=== PATIENT | male | born 1970 | race Caucasian/White ===

== ENCOUNTER 2020-07-22 19:13 | Emergency (ER) | payer OTHER, SELFPAY ==
--- NOTE | ~2020-07-22 | XR_ITS ---
EXAMINATION: XR esophogram water soluble DATE: 07/22/2020 20:13 INDICATION: Dysphagia TECHNIQUE: The patient drank water-soluble contrast. Fluoroscopy of the hypopharynx and esophagus was performed. Fluoroscopy exposure time was one minute minutes. The DAP for this procedure was 3.306 Gy cm2. COMPARISON: None. FINDINGS: There is no mass or stricture of the esophagus. Esophageal motility is normal. There is no hiatal hernia. There was no gastroesophageal reflux with provocative maneuvers. IMPRESSION: 1. Unremarkable water-soluble esophagram. Reviewed, dictated and finalized at location A. [facility]
[2020-07-22 19:18] VITALS: BP 149/94; PULSE 68; RESP 20; TEMP 36.7; O2SAT 100
--- NOTE | 2020-07-22 19:28 | ECG_ITS ---
Measurements Intervals [place] Rate: 74 P: 55 ND: 139 QRS: 75 QRSD: 101 T: 50 QT: 355 QTc: 395 Interpretive Statements SINUS RHYTHM NORMAL ECG Electronically Signed On 07-23-2020 16:31:41 PRESS SETTER by Dante Baptiste D.O.
--- NOTE | 2020-07-22 22:00 | ED.GENADULT ---
HPI - General Adult General Chief complaint: Asthma Stated complaint: Shortness of breath-Asthma Time Seen by Provider: 07/22/20 19:18 History of Present Illness HPI narrative: Patient is a 49-year-old male who presents ER with throat pain and difficulty swallowing. Patient reports earlier today he is trying to clear his lungs due to asthma and he was eating some strudel and thinks it irritated his throat. He ended up seeking care at an emergency room in [place] where they evaluated him. He had an x-ray of his chest and neck that were unremarkable. They treated him for asthma as well. Reports he has been able to tolerate oral fluids but when he tried to eat some soup tonight he had difficulty swallowing and opted to come in. No fevers or chills or sweats. No difficulty breathing at this time. Related Data Allergies Allergy/AdvReac Type Severity Reaction Status Date / Time No Known Allergies Allergy Unverified 10/07/18 16:55 Review of Systems Review of Systems: All systems reviewed & are unremarkable except as noted in HPI and below Constitutional: Constitutional: Denies chills, Denies fever(s) and Denies weakness ENT: Denies nasal congestion and Reports sore throat Cardiovascular: Cardiovascular: Denies chest pain, Denies rapid heart rate and Denies radiating jaw, neck or arm pain Respiratory: Respiratory: Denies cough, Denies dyspnea and Denies wheezing Gastrointestinal: Gastrointestinal: Denies abdominal pain, Denies nausea and Denies vomiting PMFSH Past Medical History Medical History (Updated 07/22/20 @ 22:26 by Tavo Dunlap MD) Healthy adult male Surgical History Surgical History (Updated 07/22/20 @ 22:17 by Tavo Dunlap MD) No history of previous surgery Social History Social History (Updated 07/22/20 @ 22:17 by Tavo Dunlap MD) Smoking status: Never smoker Exam Narrative: Exam Narrative: GENERAL: Well-appearing, well-nourished, and in no acute distress. HEAD: Normocephalic, atraumatic. ENT: Mucous membranes moist. Normal-appearing posterior oropharynx. Tolerating oral secretions without difficulty. NECK: Supple. CHEST: Clear to auscultation. No respiratory distress. HEART: Regular rate and rhythm. Normal peripheral pulses. ABDOMEN: Soft, nontender, nondistended. EXTREMITIES: Normal range of motion. No edema. NEURO: Alert and oriented x3. Course Course Emergency Course: Unremarkable exam. Discharge home. Likely has a superficial abrasion esophagus is causing irritation. Vital Signs Vital signs: Vital Signs Temperature 98.1 F 07/22/20 19:18 Pulse Rate 68 07/22/20 19:18 Respiratory Rate 20 07/22/20 19:18 Blood Pressure 149/94 H 07/22/20 19:18 Pulse Oximetry 100 07/22/20 19:18 Temperature 98.1 F 07/22/20 19:18 Pulse Rate 68 07/22/20 19:18 Respiratory Rate 20 07/22/20 19:18 Blood Pressure 149/94 H 07/22/20 19:18 Pulse Oximetry 100 07/22/20 19:18 Medical Decision Making Vital Signs Vital Signs: Vital Signs Temperature 98.1 F 07/22/20 19:18 Pulse Rate 68 07/22/20 19:18 Respiratory Rate 20 07/22/20 19:18 Blood Pressure 149/94 H 07/22/20 19:18 Pulse Oximetry 100 07/22/20 19:18 Temperature 98.1 F 07/22/20 19:18 Pulse Rate 68 07/22/20 19:18 Respiratory Rate 20 07/22/20 19:18 Blood Pressure 149/94 H 07/22/20 19:18 Pulse Oximetry 100 07/22/20 19:18 Imaging Data Radiologist's impression: ITS Impressions Esophagus X-Ray 07/22/20 20:24 IMPRESSION: 1. Unremarkable water-soluble esophagram. Discharge Plan Discharge Clinical Impression: Sore throat Patient Disposition: Home, Self-Care Condition: Stable Instructions: Strep Throat (ED) Additional Instructions: Return to the ER if you cannot breathe, you cannot swallow, or you have additional concerns. Follow-up/Referrals: Perry Manjarrez MD [Primary Care Provider] - 1 Week
[2020-07-22] MEDS: LIDOCAINE HCL 2% VISC SOLN 15 ML UDC PO (22:05)
[2020-07-22 22:54] VITALS: BP 141/95; PULSE 85; RESP 16; TEMP 36.7; O2SAT 100
== END 2020-07-22 22:55 | disposition home or self-care (01) ==
PROVIDERS: Emergency Provider Emergency Medicine; PCP Family Medicine
DX: J02.9 Acute pharyngitis, unspecified (principal)
CPT/HCPCS: 74220; 93005; 99283

== ENCOUNTER 2020-08-14 00:10 | Outpatient (CLI) | payer OTHER, SELFPAY ==
[2020-08-14 17:38] LABS: SARS-CoV-2 RNA PCR Negative
== END 2020-08-14 00:11 | disposition home or self-care (01) ==
PROVIDERS: Family Provider Family Medicine; PCP Family Medicine; Visit Provider Internal Medicine Gastroenterology
DX: Z01.812 Encounter for preprocedural laboratory examination (principal); Z20.822 Contact with and (suspected) exposure to COVID-19
CPT/HCPCS: C9803; U0003; U0005

== ENCOUNTER 2020-08-17 01:34 | Day surgery (SDC) | payer OTHER, SELFPAY ==
[2020-08-12 12:11] VITALS: BMI 21.5
[2020-08-17 07:00] VITALS: BP 109/79; TEMP 36.6; O2SAT 98; BMI 19.3
--- NOTE | 2020-08-17 07:00 | P.PNAN_ITS ---
Anes - Initial Pre Proc Eval Procedure: Operation Date: 08/17/20 08:00 Proposed Procedures p Esophagogastroduodenoscopy & Screening Colonoscopy - Sander Vogel MD Date/Time: 08/17/20 07:00 Surgeon: Sander Vogel MD Pre Op Diagnosis: Neoplasm Screening, Dysphagia Patient Data Age: 49 Gender: M Height: 1.85 m Weight: 74 kg Allergies Allergy/AdvReac Type Severity Reaction Status Date / Time No Known Allergies Allergy Verified 08/17/20 06:58 Home Medications Medication Instructions Recorded Confirmed Type sodium,potassium,mag sulfates 17.5 See Rx Instructions PO .COMPLEX 08/11/20 Rx gram-3.13 gram-1.6 gram oral soln #354 ml duloxetine [Cymbalta] 30 mg PO DAILY 08/12/20 08/12/20 History omeprazole 20 mg PO DAILY 08/12/20 08/12/20 History Patient hx anesthesia problems: none Family hx anesthesia problems: none COUNT INCLUDES THE [facility] Past Medical History Medical History (Updated 08/17/20 @ 07:01 by Graham Blankenship DO) Asthma Depression GERD (gastroesophageal reflux disease) Surgical History Surgical History (Updated 07/22/20 @ 22:17 by Tavo Dunlap MD) No history of previous surgery Social History Social History Smoking status: Never smoker Substance use: never Substance use type: does not use Living arrangements: with family Gender identity (if verbalized by the patient): Male Sexual Orientation (if Verbalized by the Patient): Straight or Heterosexual Spiritual care concerns: No Anes - Eval Final PreProcedure Day of Procedure 08/17/20 07:00 Patient weight: thin Heart: regular rate and rhythm Lungs: clear to auscultation and normal air movement Airway: Mallampati scale class III Neurological: alert and oriented Last oral intake: >/= 8 hours ASA classification: III Emergent: no Anesthetic plan: proceed Anesthesia type and monitoring: general GIVS and standard monitoring Informed Consent: The patient's anesthetic plan and its attendant risks and benefits were discussed with the patient/family/POA. Questions were solicited and answers provided to the satisfaction of the patient/family/POA.
[2020-08-17] MEDS: LACTATED RINGERS 1,000 ML 150 ML IV CONT (07:13)
--- NOTE | 2020-08-17 07:49 | WPDGICN ---
Assessment and Plan Assessment and plan (1) Dysphagia: Code(s): R13.10 - Dysphagia, unspecified Status: Acute Assessment and Plan: Patient has 1 month history of difficulty swallowing anything more than liquid diet. Plan is for EGD to assess more thoroughly. Plan is to exclude narrowing of the esophagus he may require dilatation. Long-term therapy will be determined after this procedure. (2) Encounter for screening colonoscopy: Code(s): Z12.11 - Encounter for screening for malignant neoplasm of colon Status: Acute Assessment and Plan: Patient presents today for screening colonoscopy because of his age. He has no family history of prior history the puts him at higher risk. Suspect he is at average risk for colon polyps. Further recommendations will be given after endoscopy. GI Consult Note Consult date/time: 08/17/20 07:49 HPI: Benny Camara is a 49 year old male Seen in follow-up at the request of Dr. Perry Manjarrez. Patient reports a 1 month history of difficulty swallowing. He denies any prior heartburn or difficulties. One month ago began to have difficulty with food hanging up in the chest. He states that liquids will pass easily. Anything more solid than this will cause discomfort in the throat and passed very slowly. He has had no relief with Tums or antacids. Over the last 1 week has begun to take a proton pump inhibitor empirically. Patient reports a 7 lb weight loss over the last 1 month. He denies any bleeding. He has no prior history of heartburn or indigestion that he is aware of. His last screening colonoscopy was many years ago. B because is been more than 10 years patient presents today for screening colonoscopy. Review of Systems Review of Systems: All systems reviewed & are unremarkable except as noted in HPI and below PMFSH Past Medical History Medical History (Updated 08/17/20 @ 07:51 by Sander Vogel MD) Asthma Depression GERD (gastroesophageal reflux disease) Surgical History Surgical History (Updated 07/22/20 @ 22:17 by Tavo Dunlap MD) No history of previous surgery Social History Social History Smoking status: Never smoker Substance use: never Substance use type: does not use Living arrangements: with family Gender identity (if verbalized by the patient): Male Sexual Orientation (if Verbalized by the Patient): Straight or Heterosexual Spiritual care concerns: No Meds Home Medications and Allergies Home Medications Medication Instructions Recorded Confirmed Type sodium,potassium,mag sulfates 17.5 See Rx Instructions PO .COMPLEX 08/11/20 Rx gram-3.13 gram-1.6 gram oral soln #354 ml duloxetine [Cymbalta] 30 mg PO DAILY 08/12/20 08/12/20 History omeprazole 20 mg PO DAILY 08/12/20 08/12/20 History Allergies Allergy/AdvReac Type Severity Reaction Status Date / Time No Known Allergies Allergy Verified 08/17/20 06:58 Vital Signs Vital Signs - 24 hr 08/17/20 07:00 Temperature 97.8 F Blood Pressure 109/79 Pulse Oximetry 98 Exam Narrative: Exam Narrative: Physical exam reveals patient to be alert. Vital signs stable. HEENT exam is unremarkable. Lungs are clear to auscultation and percussion. Heart is without murmur or extra sounds. Abdominal exam bowel sounds are present soft nontender with no organomegaly. Digital external rectal exam is normal.
[2020-08-17 08:17] VITALS: BP 96/59; PULSE 69; RESP 17; O2SAT 100
[2020-08-17 08:27] VITALS: BP 105/63; PULSE 68; RESP 17; O2SAT 100
[2020-08-17 08:37] VITALS: BP 93/73; PULSE 64; RESP 20; O2SAT 100
== END 2020-08-17 08:53 | disposition home or self-care (01) ==
PROVIDERS: Family Provider Family Medicine; PCP Family Medicine; Visit Provider Internal Medicine Gastroenterology
PROC: 0DJ08ZZ Inspection of Upper Intestinal Tract, Via Natural or Artificial Opening Endoscopic (ICD-10-PCS; CPT 43235; principal; 2020-08-17 08:00)
DX: R13.10 Dysphagia, unspecified (principal); Z12.11 Encounter for screening for malignant neoplasm of colon; K21.9 Gastro-esophageal reflux disease without esophagitis; J45.909 Unspecified asthma, uncomplicated; F32.9 Major depressive disorder, single episode, unspecified; K64.8 Other hemorrhoids
CPT/HCPCS: 45378; 43450; 43235; J2704; J7120

== ENCOUNTER 2023-08-02 18:48 | Emergency (ER) | payer OTHER, SELFPAY ==
[2023-08-02 19:02] VITALS: BP 149/80; PULSE 77; RESP 16; TEMP 37.2; O2SAT 98
--- NOTE | 2023-08-02 19:20 | ED.URI ---
HPI - URI/Sore Throat General Chief Complaint: Upper Respiratory Infection Stated Complaint: cold symptoms/poss covid exposure Time Seen by Provider: 08/02/23 19:03 Source: patient and RN notes reviewed Mode of arrival: ambulatory Limitations: no limitations History of Present Illness HPI Narrative: Patient presents today with a 2 day history of nasal congestion, rhinorrhea, cough. Denies fever, shortness of breath, sore throat. He took 1 dose of a decongestant medication today at home with some mild relief. Reports COVID exposure by child at home. Reports history of seasonal asthma Related Data Home Medications Medication Instructions Recorded Confirmed No Home Medications 08/02/23 08/02/23 Allergies Allergy/AdvReac Type Severity Reaction Status Date / Time No Known Allergies Allergy Verified 08/02/23 19:01 Review of Systems Review of Systems: CONSTITUTIONAL: Denies body aches, fever, chills, or sweats. EYES: Denies visual changes, redness, or discharge. ENT: Denies sore throat, or otalgia.+ congestion, rhinorrhea CARDIOVASCULAR: Denies chest pain, palpitations, or edema. RESPIRATORY: Denies dyspnea.+ cough GASTROINTESTINAL: Denies abdominal pain, nausea, vomiting, or diarrhea. GENITOURINARY: Denies dysuria or hematuria. SKIN: Denies rash, itching, or wounds. MUSCULOSKELETAL: Denies back pain, joint pain, or myalgia. NEUROLOGIC: Denies headache, numbness, tingling, or weakness. PSYCH: Denies depression or anxiety. [facility] Past Medical History Medical History Asthma Depression GERD (gastroesophageal reflux disease) Surgical History Surgical History No history of previous surgery Social History Social History Smoking status: Never smoker Substance use: never Substance use type: does not use Living arrangements: with family Gender identity (if verbalized by the patient): Male Sexual Orientation (if Verbalized by the Patient): Straight or Heterosexual Spiritual care concerns: No Comments At time of signature, I have reviewed and agree with nursing past medical, surgical, social and family history unless otherwise noted. Please see nursing chart for further information. There is no relevant family history pertinent to the presenting complaint Exam Narrative: GENERAL: Well-appearing, well-nourished, and in no acute distress. HEAD: Normocephalic, atraumatic. EYES: EOMI. No redness or drainage. Conjunctivae normal. ENT: Mucous membranes pink and moist. Nares mildly congested. No rhinorrhea. TMs normal bilaterally. Throat normal. Uvula midline. NECK: Normal AROM. Supple. No lymphadenopathy. CHEST: No respiratory distress. Clear to auscultation. HEART: Regular rate and rhythm. No murmur appreciated. EXTREMITIES: Normal range of motion. No edema. SKIN: Warm, dry, no rash. Capillary refill normal. Normal skin turgor. NEURO: No focal deficits. Alert and oriented x3. Gait steady. PSYCH: Normal affect. No signs of depression or anxiety. Course Course Level of Care: Express Care Visit Vital Signs Vital signs: Vital Signs Temperature 98.9 F 08/02/23 19:02 Pulse Rate 77 08/02/23 19:02 Respiratory Rate 16 08/02/23 19:02 Blood Pressure 149/80 H 08/02/23 19:02 Pulse Oximetry 98 08/02/23 19:02 Oxygen Delivery Room Air 08/02/23 19:02 Temperature 98.9 F 08/02/23 19:02 Pulse Rate 77 08/02/23 19:02 Respiratory Rate 16 08/02/23 19:02 Blood Pressure 149/80 H 08/02/23 19:02 Pulse Oximetry 98 08/02/23 19:02 Oxygen Delivery Room Air 08/02/23 19:02 Reviewed MDM - URI/Sore Throat MDM Narrative Medical decision making narrative: COVID positive. Discussed duration of illness, quarantine status, and [id number] medications as well as when to go to th
== END 2023-08-02 19:33 | disposition home or self-care (01) ==
PROVIDERS: Emergency Provider Nurse Practitioner; PCP Family Medicine
DX: U07.1 COVID-19 (principal)
CPT/HCPCS: 87426; 99213; G0463

== ENCOUNTER 2024-01-17 00:33 | Day surgery (SDC) | payer OTHER, SELFPAY ==
[2024-01-15 09:24] VITALS: BMI 23.1
--- NOTE | 2024-01-15 09:30 | PC.NURSE ---
Report to the Outpatient Waiting Room, entrance under the green pavilion located off [facility], at time _0600_ on date _[id number]_. Planned Procedure Time: _0730_. Time changes happen often and if your time is changed the preop area will call you the afternoon before. - You and your visitor will be asked to self-screen and do not enter if you have any COVID symptoms. - A mask is optional within the hospital at this time. Patients may have clear liquids (water, carbonated beverages, clear teas, apple juice) until 3 hours prior to surgery with a maximum of 20 ounces. - No food from midnight until time of surgery Take the following medications with a SIP of water the morning of surgery: __None DO NOT STOP ANY OF YOUR OTHER PRESCRIPTION MEDICATIONS PRIOR TO SURGERY ?EXCEPT THE FOLLOWING Medications to discontinue per physician Multivitamin Date to take last dose___Stop now. Please no make-up, nail beninese, hairspray, perfume, deodorant, or body powder the day of surgery. No jewelry (including any body piercings) or valuables the day of surgery, leave them at home. Please take a shower or bath the night before, or the morning of, surgery with an antibacterial soap. Wear comfortable, loose fitting clothing. - Jewelry must be removed prior to entering the operating room. Rings and piercings that are not removed may be cut off. - The hospital will not accept responsibility for valuables. - Please leave all valuables, including medications, at home the day of surgery. If you are going home after surgery, a licensed truck driver supervisor must drive you home. - NO public transportation without another adult if you receive anesthesia. - We recommend that an adult stay with you for 24 hours following discharge. - We also recommend that you do not drive, make important decision, drink alcoholic beverages, or take any drugs that were not prescribed by your health care provider for at least 24 hours after your discharge time. Follow any additional instructions given to you from your surgeon. If you or anyone in your household have experienced Covid symptoms in the past week, please notify your surgeon or the nurse liaison at the phone number below for possible testing. Telephone instructions given to __James__and asked if any additional questions and then verbalized understanding. Patient advised to call surgeon office or pre surgery nurse liaison [phone] if any additional questions.
[2024-01-17] VITALS (9 sets, daily range): BP systolic 112–129; BP diastolic 58–107; PULSE 63–77; RESP 12–16; TEMP 36.1–36.4; O2SAT 98–100
[2024-01-17] MEDS: LACTATED RINGERS 1,000 ML 30 ML IV CONT ×2 (09:15→13:10)
[2024-01-17] MEDS: ACETAMINOPHEN 500 MG TABLET 1000 MG PO (10:14)
[2024-01-17] MEDS: KETOROLAC 15 MG/ML VIAL (*BKC) IV PUSH (10:14)
--- NOTE | 2024-01-17 10:41 | WPDHPUPDATE1 ---
History and Physical Update Update Date/Time: 01/17/24 10:41 History and Physical has been reviewed, including an updated exam of the patient. There are NO changes in the patient's condition. Risks, benefits, and alternatives have been discussed and questions answered. Patient agrees to proceed with procedure.
--- NOTE | 2024-01-17 10:41 | PM.IMHP ---
H&P: HPI History of Present Illness Date/Time: 01/17/24 10:41 Chief Complaint: Right inguinal hernia Narrative: This is a 53-year-old man who presents for a right inguinal hernia repair. He reports no changes since last seen in the office Review of Systems Review of Systems: All systems reviewed & are unremarkable except as noted in HPI and below Constitutional: Constitutional: Denies chills, Denies fever(s), Denies headache(s) and Denies weight loss Eyes: Eyes: Denies change in vision ENT: Denies dizziness, Denies headache(s), Denies neck mass and Denies throat swelling Cardiovascular: Cardiovascular: Denies chest pain, Denies lightheadedness and Denies dyspnea Respiratory: Respiratory: Denies cough, Denies dyspnea and Denies wheezing Gastrointestinal: Gastrointestinal: Denies abdominal pain, Denies change in bowel habits, Denies nausea and Denies vomiting Genitourinary: Genitourinary: Denies hematuria and Denies dysuria Musculoskeletal: Musculoskeletal: Reports as per HPI Integumentary/Breasts: Skin/Breast: Reports as per HPI Neurologic: Denies dizziness and Denies headache(s) Allergic/Immunologic: Allergic/Immunologic: Denies throat swelling and Denies wheezing PMFSH Past Medical History Medical History Asthma COVID-19 Depression Dysphagia Encounter for screening colonoscopy GERD (gastroesophageal reflux disease) Surgical History Surgical History No history of previous surgery Family History Family History Father Cancer Mother No problems noted. Sibling Diabetes mellitus Social History Social History (Updated 12/08/23 @ 10:52 by Juli Small MA) Smoking status: Never smoker Alcohol intake: current Drinks per week: 3 Substance use: never Substance use type: does not use Do You Feel Safe in your Home?: Yes Lack of Transportation: No Lack of Food: Never True Current Housing: I Have Housing Concerned About Future Housing: No Difficulty Paying Gas/Electric Bills: No Difficulty Paying for Meds: No Currently Unemployed: No Education: Associate Degree Difficulty w/ Childcare or Family Care: No Living arrangements: with family Occupation/Education: occupation Additional occupation/education comments: [employer] Gender identity (if verbalized by the patient): Male Sexual Orientation (if Verbalized by the Patient): Straight or Heterosexual Spiritual care concerns: No Meds Home Medications and Allergies Home Medications Medication Instructions Recorded Confirmed Type cbteaubjpytk-ipm-uoixs acid-vit 1 tablet PO DAILY 11/27/23 01/17/24 History K-lycop 400 mcg-20 mcg-370 mcg tablet (Men's 50 Plus Multivitamin) Allergies Allergy/AdvReac Type Severity Reaction Status Date / Time No Known Allergies Allergy Verified 01/17/24 09:22 Vital Signs Vital Signs - 24 hr 01/17/24 09:15 Temperature 36.4 C Pulse Rate 76 Respiratory Rate 16 Blood Pressure 122/107 H Pulse Oximetry 100 Oxygen Delivery Room Air Exam Const: General: no acute distress and alert Orientation/consciousness: patient oriented x3 HENMT: Head: normocephalic and atraumatic Ears: hearing grossly normal bilaterally Face/Nose/Sinus: Normal nares present Mouth: Yes Normal oral and palatal mucosa present Eyes: Periorbital: periorbital findings normal Sclera: sclerae normal EOM: EOMs intact bilaterally Neck: Neck: normal visual inspection, no lymphadenopathy and trachea midline Chest: Chest palpation & inspection: normal inspection of the chest Resp: Effort & Inspection: normal respiratory effort Auscultation: clear to auscultation bilaterally Cardio: Jugular venous distension: no JVD Rate: regular rate Rhythm: regular rhythm Heart sounds: S1 normal heart sound present
--- NOTE | 2024-01-17 10:49 | WPDANESEPPF ---
Anes - Initial Pre Proc Eval Procedure: Operation Date: 01/17/24 11:00 Proposed Procedures p Laparoscopic Right Inguinal Hernia Repair with Mesh, Davinci Assisted - Andrew Cervantes DO Date/Time: 01/17/24 10:49 Surgeon: Andrew Cervantes DO Pre Op Diagnosis: Right Ing Hernia Patient Data Age: 53 Gender: M Height: 1.83 m Weight: 72.6 kg Last Vital Signs Temp 36.4 C 01/17/24 09:15 Pulse 76 01/17/24 09:15 Resp 16 01/17/24 09:15 BP 122/107 H 01/17/24 09:15 Pulse Ox 100 01/17/24 09:15 O2 Del Method Room Air 01/17/24 09:15 Allergies Allergy/AdvReac Type Severity Reaction Status Date / Time No Known Allergies Allergy Verified 01/17/24 09:22 Home Medications Medication Instructions Recorded Confirmed Type mjxhkagpfqzj-uqj-ipkxi acid-vit 1 tablet PO DAILY 11/27/23 01/17/24 History K-lycop 400 mcg-20 mcg-370 mcg tablet (Men's 50 Plus Multivitamin) Laboratory Tests 01/17/24 10:05 Blood Type Pending Antibody Screen Pending Patient hx anesthesia problems: none Family hx anesthesia problems: none Results Review: All pre-operative results and documents have been reviewed as part of the pre-operative evaluation. [facility] Past Medical History Medical History Asthma COVID-19 Depression Dysphagia Encounter for screening colonoscopy GERD (gastroesophageal reflux disease) Surgical History Surgical History No history of previous surgery Family History Family History Father Cancer Mother No problems noted. Sibling Diabetes mellitus Social History Social History Smoking status: Never smoker Alcohol intake: current Drinks per week: 3 Substance use: never Substance use type: does not use Do You Feel Safe in your Home?: Yes Lack of Transportation: No Lack of Food: Never True Current Housing: I Have Housing Concerned About Future Housing: No Difficulty Paying Gas/Electric Bills: No Difficulty Paying for Meds: No Currently Unemployed: No Education: Associate Degree Difficulty w/ Childcare or Family Care: No Living arrangements: with family Occupation/Education: occupation Additional occupation/education comments: [employer] Gender identity (if verbalized by the patient): Male Sexual Orientation (if Verbalized by the Patient): Straight or Heterosexual Spiritual care concerns: No Anes - Eval Final PreProcedure Day of Procedure 01/17/24 10:49 Patient weight: normal Heart: regular rate and rhythm Lungs: clear to auscultation Airway: Mallampati scale class II Neurological: alert and oriented Last oral intake: >/= 8 hours ASA classification: II Emergent: no Anesthetic plan: proceed Anesthesia type and monitoring: general ETT and standard monitoring Results Review: All pre-operative results and documents have been reviewed as part of the pre-operative evaluation. Informed Consent: The patient's anesthetic plan and its attendant risks and benefits were discussed with the patient/family/POA. Questions were solicited and answers provided to the satisfaction of the patient/family/POA.
[2024-01-17] MEDS: ceFAZolin 2 GM/D5W 50 ML 2 GM/50 ML BAG IVPB (11:02)
[2024-01-17] MEDS: BUPIVACAINE/EPINEPHRINE 0.5% 10 ML VIAL 30 ML INFILTRATE (11:37)
--- NOTE | 2024-01-17 12:12 | W.PM.PROC2 ---
Procedure Note - Detailed Date of Procedure 01/17/24 Pre-op Diagnosis Right Ing Hernia Post-op Diagnosis Same (Direct right inguinal hernia) Procedure Performed Laparoscopic right inguinal hernia repair with mesh, da Juan Carlos assisted Surgeon Andrew Cervantes, Anesthesia General and Local (0.5% bupivacaine with epinephrine) Indications This is a 53-year-old man who presented with right groin pain that started about 2 months ago and he has a noticeable bulge along with it. He denied any pain on the left side. He was found to have a reducible right inguinal hernia physical exam. Discussions were made with the patient about treatment options and decision was made to proceed with robotic assisted laparoscopic right inguinal hernia repair with mesh. Findings Laparoscopic right inguinal hernia repair was performed. Patient was found to have a direct right inguinal hernia. There was no evidence of left inguinal hernia on inspection. A robotic transabdominal preperitoneal approach was utilized for repair. Once a wide enough preperitoneal pocket was created in the hernia sac was reduced, I then placed a large right 3DMax mid mesh overlying the entire right myopectineal orifice. No specimens were obtained for pathology. Description of Procedure Procedure as well as risks, benefits, and alternatives were discussed with the patient. Written consent was obtained and placed in chart prior to procedure. Patient was brought back to surgical suite. He was placed supine on operating table. Time-out was done to confirm patient and procedure. He was then intubated by Anesthesia Department. His abdomen was prepped and draped in sterile fashion using chlorhexidine prep. 0.5% bupivacaine with epinephrine was infiltrated at each location for incision. A 12 millimeter transverse incision was made just superior to the umbilicus using a 15 blade scalpel. Blunt dissection was carried out down to the linea alba. A vertical incision was made at the linea alba using a 15 blade scalpel. The peritoneum was then bluntly entered. A 12 millimeter trocar was inserted and carbon dioxide insufflation was used to create a pneumoperitoneum. A camera was inserted and the abdominal cavity was inspected. The patient was placed in slight Trendelenburg position. An 8 millimeter incision was made on the right lateral abdomen and an 8 millimeter trocar was inserted under direct visualization. Another 8 millimeter incision was made in the left lateral abdomen and an 8 millimeter trocar was inserted under direct visualization. The robotic arms were brought up to the patient's bedside and secured to the ports. The camera and instruments were inserted. I then moved over to the robotic console and took control of the camera and instruments. After careful inspection of the abdominal cavity, I began scoring the peritoneum along the right lower quadrant using scissors with electrocautery. The preperitoneal plane was entered and this was carefully dissected caudally along the inferior epigastric vessels. Careful dissection with scissors with electrocautery and blunt dissection was used to continue this dissection. I dissected far enough laterally to allow for mesh placement, and also dissected medially to identify the pubic arch and Mike's ligament. The hernia sac was identified and carefully dissected posteriorly. The cord contents were also identified and the peritoneum was carefully dissected far enough posteriorly to allow for mesh placement. Once an adequate pocket was created, I then placed the mesh within the preperitoneal pocket and carefully unfolded it. The mesh was centered on the hernia defect with adequate overlap circumferentially. The inferior edge of the mesh was inspected to ensure that it was far enough away from the peritoneal edge. The mesh appeared in proper position overlying the entire myopectineal orifice. The mesh was secured using 3-0 Vicryl simple interrupted sutures i
[2024-01-17] MEDS: oxyCODONE HCL (*CRX) 5 MG TAB IR PO (13:45)
== END 2024-01-17 14:45 | disposition home or self-care (01) ==
PROVIDERS: PCP Family Medicine; Visit Provider Surgery
PROC: 8E0Y4CZ Robotic Assisted Procedure of Lower Extremity, Percutaneous Endoscopic Approach (ICD-10-PCS; CPT 49650; principal; 2024-01-17 11:00)
DX: K40.90 Unilateral inguinal hernia, without obstruction or gangrene, not specified as recurrent (principal); J45.909 Unspecified asthma, uncomplicated; K21.9 Gastro-esophageal reflux disease without esophagitis
CPT/HCPCS: 49650; S2900; 36415; 86850; 86900; 86901; A9270; C1781; J0690; J1100; J1170; J1885; J2250; J2405; J2704; J3010; J7120

== ENCOUNTER 2024-11-01 15:42 | Outpatient (CLI) | payer OTHER, SELFPAY ==
--- NOTE | ~2024-11-01 | XR_ITS ---
Lumbosacral Spine: AP, oblique, and lateral views Clinical History: Pain Findings: The normal lordotic curve is maintained. The vertebral bodies and posterior elements are i ntact. The intervertebral disc spaces are preserved. The sacroiliac joints are normally outlined. Impression: No significant abnormality. Reviewed, dictated and finalized at [facility]. Impression: No significant abnormality.
--- OUTSIDE RECORDS SUMMARY | 2024-11-01 15:46 | XMS_ITS | Clinical Summary ---
Author Organization [facility] Address [address], [address] [address] Phone Care Team Providers Care Waist Pleater Name Role Phone Perry Manjarrez MD Primary Care Provider [phone] Social History Tobacco Use Types Packs/Day Years Used Date Smoking Tobacco: Never Assessed Sex and Gender Information Value Date Recorded Sex Assigned at Not on file Legal Sex Male 12:15 AM CDT Gender Identity Not on file Sexual Orientation Not on file Plan of Treatment Health Maintenance Due Date Last Done Comments Hepatitis C Virus (HCV) Screening 1970 TdaP Immunization 1968 Hepatitis B Immunization (1 of 3 - 19+ 3-dose series) 12/19/1987 Colonoscopy 2013 Colorectal Cancer Screening 2013 Cologuard 2018 Immunochemical Fecal Occult Blood 2018 Pneumococcal Immunization (5 0+ years) (1 of 1 - PCV) 2018 Zoster Immunization (1 of 2) 2018 PSA Discussion 12/19/2023 Influenza Immunization (#1) 2024 SARS-COV-2 Immunization ( season) 2024 Respiratory Syncytial Virus (RSV) Immunization (Adult) (1 - 1-dose 75+ series) 12/19/2043 Meningococcal Immunization (ACWY) Aged Out No longer eligible based on patient's age to complete this topic Pneumococcal Immunization Combined Aged Out No longer eligible based on patient's age to complete this topic Rotavirus Immunization Aged Out No lo nger eligible based on patient's age to complete this topic Care Teams Waist Pleater Relationship Specialty Start Date End Date Perry Manjarrez MD [address] [place], [place] [address] PCP - General Family Medicine 09/02/19
--- OUTSIDE RECORDS SUMMARY | 2024-11-01 15:46 | XMS_ITS | Clinical Summary ---
Author Organization [facility] Address [address] [place] [address] Care Team Providers Care Digital Communications Manager Name Role Phone Perry Manjarrez MD Primary Care Provider [phone] Source Comments [facility],non-owned Affiliates and Associated Physician Practices is amultiple site organization consisting of ambulatory clinics and hospital sitesin [place], [place], [place] and [place]. This disclosure is being madepursuant to the Care Everywhere program and may not contain all information available regarding this patient. Last updated 18.[facility] Allergies No known active allergies Medications * Be aware that medications may not be up to date on this document. Alwaysverify current medications with the patient. Medication Sig Dispensed Refills Start Date End Date Status albuterol HFA (PROVENTIL;VENTOLIN;P ROAIR) 108 (90 Base) MCG/ACT inhaler Inhale 2 puffs by mouth 4 times daily 07/23/2020 Active amitriptyline (ELAVIL) 10 MG tablet Take 1 (one) tablet by mouth every evening 30 tablet 3 08/27/2020 Active Social History Tobacco Use Types Packs/Day Years Used Date Smoking Tobacco: Never Smokeless Tobacco: Never Alcohol Use Standard Drinks/Week Comments Yes 0 (1 standard drink = 0.6 oz pur e alcohol) social Sex and Gender Information Value Date Recorded Sex Assigned at Not on file Gender Identity Not on file Sexual Orientation Not on file Last Filed Vital Signs Vital Sign Reading Time Taken Comments Blood Pressure 107/63 08/27/2020 8:34 AM ORDER DISPATCHER CHIEF Pulse 94 08/27/2020 8:34 AM ORDER DISPATCHER CHIEF Temperature 36.7 C (98 F) 08/27/2020 8:34 AM ORDER DISPATCHER CHIEF Respiratory Rate - - Oxygen Saturation - - Inhaled Oxygen Concentration - - Weight 68.5 kg (151 lb) 08/27/2020 8:34 AM ORDER DISPATCHER CHIEF Height 185.4 cm (6' 1 ) 08/27/2020 8:34 AM ORDER DISPATCHER CHIEF Body Mass Index 19.92 08/27/2020 8:34 AM ORDER DISPATCHER CHIEF Plan of Treatment Health Maintenance Due Date Last Done Comments COLOGUARD (AGES 45-75) - COL ON CA SCREENING 1968 CT COLONOGRAPHY - COLON CA SCREENING 1968 FIT - COLON CA SCREENING 1968 FLEX SIG - COLON CA SCREENING 1968 LIPID TESTING 1968 HIV SCREENING 12/19/1983 HEPATITIS C SCREENING 12/14/1986 DTAP/TDAP/TD VACCINES (1 - Tdap) 12/19/1987 HEPATITIS B VACCINE (1 of 3 - 19+ 3-dose series) 12/19/1987 PNEUMOCOCCAL VACCINE 50+ (1 of 1 - PCV) 2018 ZOSTER VACCINE (1 of 2) 2018 COVID-19 VACCINE ( - 2023-2 5 season) 2024 DEPRESSION SCREENING 07/24/2024 INFLUENZA VACCINE (Season Ended) 2025 COLON MONITORING 08/17/2030 08/17/2020 COLONOSCOPY - COLON CA SCREENING 08/17/2030 08/17/19 21 Colorectal Cancer Screening 08/17/2030 HIB VACCINE Aged Out No longer eligi ble based on patient's age to complete this topic HPV VACCINE Aged Out No longer eligi ble based on patient's age to complete this topic MENINGOCOCCAL (Group B) VACC INE SHARED DECISION-MAKING Aged Out No longer eligibl e based on patient's age to complete this topic MENINGOCOCCAL GROUPS A/C/Y/W VACCINE Aged Out No longer eligible b ased on patient's age to complete this topic PNEUMOCOCCAL VACCINE Aged Out No long er eligible based on patient's age to complete this topic Procedures Procedure Name Priority Date/Time Associated Diagnosis Comments COLONOSCOPY Routine 08/17/2020 8:49 AM ORDER DISPATCHER CHIEF from Last 3 Months or Most Recently Relevant to Health Maintenance Insurance Payer Benefit Plan / Group Subscriber ID Effective Dates Phone Address Type [facility] 01/22/2020-Present [address] [place] [address] HMO [employer] [facility] 01/22/2020-Present [address] [place] [address] HMO [employer] [facility] 01/22/2020-Present [address] [place] [address] HMO [employer] [facility] Effective for all dates [address] [place] [address] O [employer] [facility] Effective for all dates [address] [place] [address] HMO HE[employer]LINK HEALTHLINK OPEN ACCESS HMO Effective for all dates [address] [place] [address] HMO [employer] OPEN ACCESS HMO Effective for all dates [address] [place] [address] HMO [employer] OPEN ACCESS HMO Effective for all dates [address] [place] [address] HMO [employer] OPEN ACCESS HMO Effective for all dates [address] [place] [address] HMO [employer] OPEN ACCESS HMO Effective for all dates [address] [place] [address] HMO [employer] OPEN ACCESS HMO Effective for all dates [address] [place] [address] HMO [employer] HE[employer] OPEN ACCESS HMO Effective for all dates [address] [place] [address] HMO [employer] OPEN ACCESS HMO Effective for all dates [address] [place] [address] HMO [employer] OPEN ACCESS HMO Effective for all dates [address] [place] [address] HMO [employer] OPEN ACCESS HMO Effective for all dates [address] [place] [address] HMO [employer] OPEN ACCESS HMO Effective for all dates [address] [place] [address] HMO [employer] HE[employer] OPEN ACCESS HMO Effective for all dates [address] [place] [address] HMO [employer] OPEN ACCESS HMO Effective for all dates [address] [place] [address] HMO [employer] OPEN ACCESS HMO Effective for all dates [address] [place] [address] HMO [employer] OPEN ACCESS HMO Effective for all dates [address] [place] [address] HMO [employer] OPEN ACCESS HMO Effective for all dates [address] [place] [address] HMO [employer] OPEN ACCESS HMO Effective for all dates [address] [place] [address] HMO [employer] OPEN ACCESS HMO Effective for all dates [address] [place] [address] HMO [employer] HE[employer] OPEN ACCESS HMO Effective for all dates [address] [place] [address] HMO [employer] OPEN ACCESS HMO Effective for all dates [address] [place] [address] HMO [employer] OPEN ACCESS HMO Effective for all dates [address] [place] [address] HMO [employer] OPEN ACCESS HMO Effective for all dates [address] [place] [address] HMO [employer] Personal/Famil y Spouse [address] [place] [address] [employer] Personal/Famil y Spouse [address] [place] [address] [employer] Personal/Famil y Spouse [address] [place] [address] [employer] Personal/Famil y Spouse [address] [place] [address] [employer] Personal/Famil y Spouse [address] [place] [address] [employer] Personal/Famil y Spouse [address] [place] [address] [employer] Personal/Famil y Spouse [address] [place] [address] [employer] Personal/Famil y Spouse [address] [place] [address] [employer] Personal/Famil y Sp[address] [place] [address] [employer] Personal/Famil y Sp[address] [place] [address] [employer] Personal/Famil y Spouse [address] [place] [address] [employer] Personal/Famil y Spouse [address] [place] [address] [employer] Personal/Famil y Spouse [address] [place] [address] [employer] Personal/Famil y Sp[address] [place] [address] [employer] Personal/Famil y Spouse [address] [place] [address] [employer] Personal/Famil y Spouse [address] [place] [address] [employer] Personal/Famil y Spouse [address] [place] [address] [employer] Personal/Famil y Spouse [address] [place] [address] [employer] Personal/Famil y Spouse [address] [place] [address] Care Teams Digital Communications Manager Relationship Specialty Start Date End Date Perry Manjarrez MD [address] [facility] [place] [address] PCP - General 08/03/20
== END 2024-11-01 15:43 | disposition home or self-care (01) ==
PROVIDERS: PCP Family Medicine
DX: M54.50 Low back pain, unspecified (principal)
CPT/HCPCS: 72110